=== PATIENT | female | born 2005 | race Caucasian/White ===

== ENCOUNTER 2024-03-25 08:52 | Day surgery (SDC) | payer OTHER ==
[~2024-03-25] VITALS: Ht 160 cm; Wt 48.1 kg
[~2024-03-25 08:52] MED LIST: FAMO10TA50 PO; FLUO-290 PO; NS 1,000 ML IV ONE; OMEP1CAP71 PO
[2024-03-25] MEDS ORDERED: fentaNYL 100 MCG/2 ML INJECTION As Ordered ONE (09:46)
[2024-03-25] MEDS ORDERED: LIDOCAINE 2% 100MG/5ML SDV (FOR ANES.) As Ordered ONE (09:46)
[2024-03-25] MEDS ORDERED: propofoL 500 MG/50 ML VIAL As Ordered ONE (09:46)
[2024-03-25 11:44] VITALS: BP 111/57; O2SAT 100
== END 2024-03-25 11:43 | disposition home or self-care (01) ==
LOC: M OPP 08:52
PROVIDERS: ATTEND Internal Medicine Gastroenterology
DX: K63.5 Polyp of colon (principal); K64.8 Other hemorrhoids; R19.7 Diarrhea, unspecified; R10.84 Generalized abdominal pain; R11.2 Nausea with vomiting, unspecified; K31.89 Other diseases of stomach and duodenum; F17.290 Nicotine dependence, other tobacco product, uncomplicated; Z79.1 Long term (current) use of non-steroidal anti-inflammatories (NSAID); Z88.1 Allergy status to other antibiotic agents
CPT/HCPCS: 43239; 45380; 88305; J3010